=== PATIENT | male | born 1995 | race Caucasian/White ===

== ENCOUNTER 2018-04-08 14:22 | Emergency (ER) | payer SELFPAY ==
[~2018-04-08] VITALS: Ht 167.6 cm; Wt 82.0 kg
[2018-04-08 14:43] VITALS: BP 136/95
[2018-04-08] MEDS ORDERED: DIPHENHYDRAMINE 25MG CAPSULE PO ONE (18:45)
[2018-04-08] MEDS ORDERED: METHYLPREDNISOLONE SOD SUCC 125 MG/2 ML VIAL IM ONE (18:45)
== END 2018-04-08 19:33 | disposition home or self-care (01) ==
LOC: ER 14:22
DX: L50.9 Urticaria, unspecified (principal)
CPT/HCPCS: 96372; 99283; J2930; J7030; Q0163